=== PATIENT | female | born 1990 | race Caucasian/White ===

== ENCOUNTER 2017-09-11 22:08 | Emergency (ER) | payer BC ==
[~2017-09-11] VITALS: Ht 167.6 cm; Wt 59.0 kg
[~2017-09-11 22:08] MED LIST: ACETAMINOPHEN-1 EAC1 PO; ADVIL100 M1 PO; ALEVE220 M1 PO; ALPRAZOLAM0.5 MG; AMBIEN10 MG; AMBIEN10 MG PO; BIRTH CONTROL PILL PO; CRUTCH1 EACH; IBUPROFEN800 MG PO; NAPROXEN500 MG PO; NUVARING VAGIN1 EACH; NUVARING VAGIN1 EACH VG; POLYMYXIN B-TMP10 ML OD; PRENATAL ONE T1 EACH PO; PROZAC20 MG; SUDAFED 12-HOU120 MG PO; VISTARIL25 MG PO; ZOFRAN4 MG PO
[2017-09-11] MEDS ORDERED: BACTRIM DS TAB1 EACH PO (22:15)
== END 2017-09-12 00:22 | disposition home or self-care (01) ==
LOC: ED 22:08
DX: F10.129 Alcohol abuse with intoxication, unspecified (principal); Z91.038 Other insect allergy status; Z91.030 Bee allergy status; Z88.0 Allergy status to penicillin; Z79.899 Other long term (current) drug therapy
CPT/HCPCS: 80053; 81001; 84703; 85025; 96361; 96374; 96375; 99284; G0480; J2405; J2550; J7030

== ENCOUNTER 2023-09-13 15:30 | Emergency (ER) | payer OTHER ==
[~2023-09-13] VITALS: Ht 167.6 cm; Wt 65.6 kg
[~2023-09-13 15:30] MED LIST changes: +BACTRIM DS TAB1 EACH PO
[2023-09-13] MEDS ORDERED: ondansetron HCL 4 MG/2 ML VIAL IV ONE (16:00)
[2023-09-13] MEDS ORDERED: SODIUM CHLORIDE 0.9% 1,000 ML IV PRN (16:00)
[2023-09-13] MEDS ORDERED: PYRIDOXINE HCL 100 MG/ML VIAL IV ONE (16:15)
[2023-09-13] MEDS ORDERED: diphenhydrAMINE HCL 50 MG/ML VIAL IV ONE (16:15)
[2023-09-13] MEDS ORDERED: VITAFOL-OB+DHA1 EACH PO (16:28)
[2023-09-13] MEDS ORDERED: DEXTROSE 5% IM ONE (16:30)
[2023-09-13] MEDS ORDERED: PYRIDOXINE HCL IM ONE (16:30)
[2023-09-13 16:36] LABS: BASOPHILS 0.6 % (0-2); EOSINOPHILS 1.1 % (0-6); HEMOGLOBIN 12.3 g/dL (12.0-18.0); LYMPHOCYTES 17.9 % (24-44); MCH 28.9 (27-36); MCV 84.9 fl (81-99); MONOCYTES 5.4 % (0-12); PLATELET COUNT 232 K/uL (140-440); RBC 4.25 M/ul (4.3-5.7); RDW 12.7 (10.5-15.0)
[2023-09-13] MEDS ORDERED: PYRIDOXINE HCL IV ONE (16:45)
[2023-09-13] MEDS ORDERED: DEXTROSE 5% IV ONE (16:45)
[2023-09-13 16:59] LABS: ALBUMIN 3.5 g/dL (3.4-5.0); ALBUMIN/GLOBULIN RATIO 0.95 (1.1-2.4); ANION GAP 14.4 (7-21); BILIRUBIN, TOTAL 0.2 ng/dL (0.2-1.0); BUN/CREATININE RATIO 16.07 (6.0-28.6); CALCIUM 9.1 mg/dL (8.5-10.1); CREATININE, SERUM 0.56 mg/dL (0.55-1.02); MAGNESIUM 1.8 mg/dL (1.8-2.4); POTASSIUM 3.4 mmol/L (3.5-5.1); PROTEIN, TOTAL 7.2 g/dL (6.4-8.2)
[2023-09-13 17:39] LABS: BILIRUBIN, URINE NEGATIVE (negative); BLOOD/HGB, URINE NEGATIVE (Negative); KETONE, URINE NEGATIVE (Negative); LEUK ESTERASE, URINE NEGATIVE (negative); NITRITE, URINE NEGATIVE (negative)
[2023-09-13] MEDS ORDERED: ONDANSETRON ODT8 MG PO (18:47)
[2023-09-13] MEDS ORDERED: VITAMIN B-610 MG PO (18:47)
[2023-09-13 18:55] VITALS: BP 99/58
== END 2023-09-13 18:55 | disposition home or self-care (01) ==
LOC: ED 15:30
PROVIDERS: Emergency Medicine
DX: O21.9 Vomiting of pregnancy, unspecified (principal); Z3A.12 12 weeks gestation of pregnancy; O26.891 Other specified pregnancy related conditions, first trimester; R42 Dizziness and giddiness; R51.9 Headache, unspecified; O99.511 Diseases of the respiratory system complicating pregnancy, first trimester; J45.909 Unspecified asthma, uncomplicated; Z79.899 Other long term (current) drug therapy; Z88.0 Allergy status to penicillin; Z91.030 Bee allergy status
CPT/HCPCS: 36415; 80053; 81003; 83690; 83735; 85025; J1200; J2405; J3415; J7030

== ENCOUNTER 2024-01-28 07:57 | Emergency (ER) | payer OTHER ==
[~2024-01-28] VITALS: Ht 167.6 cm; Wt 82.5 kg
[~2024-01-28 07:57] MED LIST changes: +ONDANSETRON ODT8 MG PO; +VITAFOL-OB+DHA1 EACH PO; +VITAMIN B-610 MG PO
[2024-01-28 08:33] LABS: BASOPHILS 0.4 % (0-2); EOSINOPHILS 1.9 % (0-6); HEMATOCRIT 35.1 % (35.0-50.0); HEMOGLOBIN 12.1 g/dL (12.0-18.0); LYMPHOCYTES 10.6 % (24-44); MCH 30.2 (27-36); MCHC 34.5 g/dl (30-36); MCV 87.6 fl (81-99); MONOCYTES 8.7 % (0-12); NEUTROPHILS 78.4 % (39-80); PLATELET COUNT 188 K/uL (140-440); RBC 4.01 M/ul (4.3-5.7); RDW 13.7 (10.5-15.0)
[2024-01-28 08:47] LABS: ALBUMIN 2.9 g/dL (3.4-5.0); ALBUMIN/GLOBULIN RATIO 0.66 (1.1-2.4); ANION GAP 14.1 (7-21); BILIRUBIN, TOTAL 0.3 ng/dL (0.2-1.0); BUN/CREATININE RATIO 11.76 (6.0-28.6); CALCIUM 8.8 mg/dL (8.5-10.1); CREATININE, SERUM 0.68 mg/dL (0.55-1.02); POTASSIUM 4.1 mmol/L (3.5-5.1); PROTEIN, TOTAL 7.3 g/dL (6.4-8.2)
[2024-01-28] MEDS ORDERED: SODIUM CHLORIDE 0.9% 1,000 ML IV PRN (09:00)
[2024-01-28 09:07] LABS: BILIRUBIN, URINE NEGATIVE (negative); BLOOD/HGB, URINE NEGATIVE (Negative); KETONE, URINE NEGATIVE (Negative); LEUK ESTERASE, URINE NEGATIVE (negative); NITRITE, URINE NEGATIVE (negative)
[2024-01-28 09:08] LABS: BILIRUBIN, URINE NEGATIVE (negative); BLOOD/HGB, URINE NEGATIVE (Negative); KETONE, URINE NEGATIVE (Negative); LEUK ESTERASE, URINE NEGATIVE (negative); NITRITE, URINE NEGATIVE (negative)
[2024-01-28 09:17] LABS: BACTERIA, URINE RARE /hpf (negative); CASTS, URINE NONE SEEN \\lpf; COLLECTION TYPE, URINE CLEAN CATCH; CRYSTALS, URINE NONE SEEN (0-1+); REFLEX CULTURE, URINE No (No)
[2024-01-28 11:52] VITALS: BP 114/76
== END 2024-01-28 11:51 | disposition home or self-care (01) ==
LOC: ED 07:57
PROVIDERS: Emergency Medicine
DX: O26.893 Other specified pregnancy related conditions, third trimester (principal); R10.9 Unspecified abdominal pain; O99.513 Diseases of the respiratory system complicating pregnancy, third trimester; J45.909 Unspecified asthma, uncomplicated; Z3A.32 32 weeks gestation of pregnancy; Z88.0 Allergy status to penicillin; Z91.030 Bee allergy status; Z79.899 Other long term (current) drug therapy
CPT/HCPCS: 36415; 59025; 76770; 80053; 81001; 81003; 85025; 99284-25; G0463; J7030

== ENCOUNTER 2024-01-28 19:19 | Emergency (ER) | payer OTHER ==
[~2024-01-28] VITALS: Ht 167.6 cm; Wt 80.0 kg
--- OUTSIDE RECORDS SUMMARY | 2024-01-28 19:26 | XMS ---
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 [place] - 2 Visits in 30 Days CARE PROVIDERS ELVIN MILES Nurse Practitioner: Family Current PHONE: Unknown Gema has no Care Guidelines for this patient. E.Mary VISIT COUNT (12 MO.) 3 [facility] TOTAL 3 NOTE: Visits indicate total known visits. ED/UCC VISIT TRACKING (12 MO.) 01/28/2024 19:19 [facility] [place] TYPE: Emergency COMPLAINT: - VAGINAL BLEEDING/32 WEEKS 01/28/2024 07:58 [facility] [place] TYPE: Emergency COMPLAINT: - FLANK PAIN 09/13/2023 15:31 [facility] [place] TYPE: Emergency COMPLAINT: - DIZZINESS/ 12 WEEKS PREG DIAGNOSES: - 12 weeks gestation of - Allergy status to penicillin - Bee allergy status - Diseases of the respiratory system complicating , first trimester - Dizziness and giddiness - Headache, unspecified - Nausea with vomiting, unspecified - Other fpc (current) drug therapy - Other specified related conditions, first trimester - Unspecified asthma, uncomplicated - Vomiting of , unspecified INPATIENT VISIT TRACKING (12 MO.) No inpatient visits to display in this time frame [email or web address]
[2024-01-28 20:15] VITALS: BP 119/70
== END 2024-01-28 20:15 | disposition other institution, planned readmission (95) ==
LOC: ED 19:19
DX: O46.93 Antepartum hemorrhage, unspecified, third trimester (principal); Z3A.32 32 weeks gestation of pregnancy; Z88.0 Allergy status to penicillin; Z91.030 Bee allergy status
CPT/HCPCS: 99284

== ENCOUNTER 2024-03-16 06:28 | Inpatient (IN) | payer OTHER ==
[~2024-03-16] VITALS: Ht 167.6 cm; Wt 86.2 kg
[2024-03-17] MEDS ORDERED: LACTATED RINGER'S 2,000 ML IV PRN
[2024-03-17] MEDS ORDERED: MAGNESIUM HYDROXIDE/AL HYDROX 30 ML CUP PO PRN (05:30)
[2024-03-17] MEDS ORDERED: CALCIUM CARBONATE 500 MG CHEW PO PRN (05:30)
[2024-03-17 05:43] LABS: HEMATOCRIT 38.1 % (35.0-50.0); MCH 29.4 (27-36); MCHC 34.1 g/dl (30-36); MCV 86.1 fl (81-99); RBC 4.42 M/ul (4.3-5.7); RDW 14.2 (10.5-15.0)
[2024-03-17 06:05] LABS: AMPHETAMINES, URINE NEGATIVE (NEGATIVE); BARBITURATES, URINE NEGATIVE (NEGATIVE); BENZODIAZEPINE, URINE NEGATIVE (NEGATIVE); BUPRENORPHINE, URINE NEGATIVE (NEGATIVE); CANNABINOID, URINE NEGATIVE (NEGATIVE); COCAINE, URINE NEGATIVE (NEGATIVE); ECSTASY, URINE NEGATIVE (NEGATIVE); FENTANYL, URINE NEGATIVE (NEGATIVE); METHADONE, URINE NEGATIVE (NEGATIVE); OPIATES, URINE NEGATIVE (NEGATIVE); OXYCODONE, URINE NEGATIVE (NEGATIVE); PHENCYCLIDINE, URINE NEGATIVE (NEGATIVE)
[2024-03-17 06:18] LABS: ABO A; ANTIBODY SCREEN NEGATIVE; RH POSITIVE
[2024-03-17 06:21] VITALS: BP 113/68
[2024-03-17] MEDS ORDERED: SOD+POT BICARB/CITRIC ACID 2 EA TABLET.EFF PO SCH (07:00)
[2024-03-17] MEDS ORDERED: CEFAZOLIN SODIUM 2 GM/20 ML SYR IV SCH (07:00)
[2024-03-17] MEDS ORDERED: fentaNYL citrate 100 MCG/2 ML VIAL ONE (07:21)
[2024-03-17] MEDS ORDERED: LIDOCAINE HCL 2% 5 ML SDV ONE (07:21)
[2024-03-17] MEDS ORDERED: BUPIVACAINE 0.75% IN DEXTROSE 2 ML AMP ONE (07:21)
[2024-03-17] MEDS ORDERED: ondansetron HCL 4 MG/2 ML VIAL ONE (07:21)
[2024-03-17] MEDS ORDERED: MORPHINE SULFATE 1 MG/ML VIAL ONE (07:21)
[2024-03-17] MEDS ORDERED: DEXAMETHASONE SOD PHOS 4 MG/ML VIAL ONE ×2 (07:22→08:10)
[2024-03-17] MEDS ORDERED: OXYTOCIN 10 UNITS/ML VIAL ONE (07:25)
[2024-03-17] MEDS ORDERED: PHENYLEPHRINE HCL 10 MG/ML VIAL ONE (07:34)
[2024-03-17] MEDS ORDERED: Ropivacaine HCl 0.5% 30 ML VIAL ONE (08:10)
[2024-03-17] MEDS ORDERED: SODIUM CHLORIDE 0.9% 20 ML IV ONE (08:10)
[2024-03-17] MEDS ORDERED: dexmedeTOMIDine HCl 200 MCG/2 ML VIAL ONE (08:13)
[2024-03-17] MEDS ORDERED: diphenhydrAMINE HCL 50 MG/ML VIAL IV PRN (08:15)
[2024-03-17] MEDS ORDERED: ondansetron HCL 4 MG/2 ML VIAL IV PRN ×3 (08:15→09:00)
[2024-03-17] MEDS ORDERED: diphenhydrAMINE HCL 25 MG CAP PO PRN (08:15)
[2024-03-17] MEDS ORDERED: NALOXONE HCL 0.4 MG SYR IV PRN ×2 (08:15)
[2024-03-17] MEDS ORDERED: fentaNYL citrate 50 MCG/ML SDV IV PRN (08:15)
[2024-03-17] MEDS ORDERED: HYDROmorphone HCL 1 MG/ML SYR IV PRN (08:15)
[2024-03-17] MEDS ORDERED: KETOROLAC TROMETHAMINE 30 MG/ML VIAL IV PRN ×2 (08:15)
[2024-03-17] MEDS ORDERED: IBLOOD GLUCOSE TEST STRIP 1 EA TEST VI PRN (08:15)
[2024-03-17] MEDS ORDERED: LACTATED RINGER'S 1,000 ML IV SCH ×2 (08:52)
[2024-03-17] MEDS ORDERED: PROMETHAZINE HCL 25 MG SUPP PR PRN (09:00)
[2024-03-17] MEDS ORDERED: OXYTOCIN/0.9 % SODIUM CHLORIDE 500 ML IV SCH (09:00)
[2024-03-17] MEDS ORDERED: PROCHLORPERAZINE EDISYLATE 10 MG/2 ML VIAL IV PRN (09:00)
[2024-03-17] MEDS ORDERED: METOCLOPRAMIDE HCL 10 MG/2 ML SDV IV PRN (09:00)
[2024-03-17] MEDS ORDERED: bisacodyL 10 MG SUPP PR PRN (09:00)
[2024-03-17] MEDS ORDERED: SENNOSIDES/DOCUSATE 1 EA TAB PO SCH (09:00)
[2024-03-17] MEDS ORDERED: LIDOCAINE 2% VISCOUS 6 ML SYR TOP ONE (09:00)
[2024-03-17] MEDS ORDERED: PROMETHAZINE HCL 25 MG TAB PO PRN (09:00)
[2024-03-17] MEDS ORDERED: HYDROCODONE/ACETA 5/325 TAB PO PRN (09:00)
[2024-03-17 09:32] VITALS: BP 105/57
--- NOTE | 2024-03-17 09:41 | NUR ---
03/17/24 0941 Caroline Hernandez 0853-PT ARRIVES TO ROOM 103 IN FB VIA STRETCHER, PT A+O X4, PT DENIES PAIN OR NAUSEA, VSS ON RA, RR EVEN AND UNLABORED. 20G IV TO LAC. 0900-HOB RAISED SLIGHTLY, PT DENIES PAIN OR NAUSEA, PT EATING ICE CHIPS, VSS ON RA. 904-PT BEING ASSISTED BY [facility] RN W/ , PT CONTINUES TO DENY PAIN OR NAUSEA, VS REMAIN STABLE ON RA. 909-BEDSIDE REPORT GIVEN TO [facility] RN, ALL QUESTIONS ANSWERED, FINAL FUNDAL CHECK COMPLETED W/ [facility] RN ASSUMING CARE.
[2024-03-17] MEDS ORDERED: ePHEDrine KIT FOR FBC IV ONE ×2 (09:46→10:28)
[2024-03-17] MEDS ORDERED: ePHEDrine sulfate 5 MG/ML SYRINGE IV ONE (10:45)
[2024-03-17] MEDS ORDERED: ePHEDrine sulfate 50 MG/ML AMP ONE (10:47)
[2024-03-17] MEDS ORDERED: DEXAMETHASONE SOD PHOS 10 MG/ML VIAL IV ONE (11:00)
[2024-03-17] MEDS ORDERED: PROCHLORPERAZINE EDISYLATE 10 MG/2 ML VIAL IV ONE ×2 (11:00)
[2024-03-17] MEDS ORDERED: ACETAMINOPHEN 325 MG TAB PO PRN (12:45)
[2024-03-17] MEDS ORDERED: SIMETHICONE 80 MG CHEW PO SCH (13:00)
[2024-03-17 13:21] LABS: BASOPHILS 0.3 % (0-2); EOSINOPHILS 0.1 % (0-6); HEMATOCRIT 36.2 % (35.0-50.0); HEMOGLOBIN 12.7 g/dL (12.0-18.0); LYMPHOCYTES 3.8 % (24-44); MCH 30.1 (27-36); MCV 85.8 fl (81-99); MONOCYTES 1.3 % (0-12); NEUTROPHILS 94.5 % (39-80); PLATELET COUNT 188 K/uL (140-440); RBC 4.22 M/ul (4.3-5.7); RDW 13.7 (10.5-15.0)
[2024-03-17] MEDS ORDERED: KETOROLAC TROMETHAMINE 30 MG/ML VIAL IV SCH (14:00)
[2024-03-18 05:43] LABS: HEMATOCRIT 29.8 % (35.0-50.0); HEMOGLOBIN 10.1 g/dL (12.0-18.0); MCH 29.8 (27-36); MCV 87.6 fl (81-99); RBC 3.4 M/ul (4.3-5.7)
[2024-03-18] MEDS ORDERED: SOD+POT BICARB/CITRIC ACID 2 EA TABLET.EFF PO SCH (07:00)
[2024-03-18] MEDS ORDERED: CEFAZOLIN SODIUM 2 GM/20 ML SYR IV SCH (07:00)
[2024-03-18] MEDS ORDERED: IBUPROFEN 600 MG TAB PO SCH (14:00)
--- NOTE | 2024-03-20 11:44 | PATH ---
[facility] [address], [place] [address] Signed SPECIMEN(S): A RIGHT FALLOPIAN TUBE SPECIMEN(S): B LEFT FALLOPIAN TUBE SPECIMEN SOURCE: A. RIGHT FALLOPIAN TUBE B. LEFT FALLOPIAN TUBE CLINICAL HISTORY: Risk-reducing FINAL PATHOLOGIC DIAGNOSIS: A-B. 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 These findings, together with the gross examination, support the pathologic diagnosis. GROSS DESCRIPTION: A. The specimen, labeled and designated "Jax Akers., right fallopian tube per requisition," is received in formalin and consists of a 13.9 x 1 x 0.8 cm pink-purple fallopian tube with attached fimbriated end. The serosal surfaces smooth no apparent paratubal cyst. The specimen is serially sectioned revealing a pinpoint lumen. There are no discrete masses or lesions. [employer] sections are submitted cassette A1 and A2 fimbriated ends completely submitted in cassette A1. B. The specimen, labeled and designated "Jax Akers., left fallopian tube per requisition," is received in formalin and consists of a 10.4 x 1 x 1 cm pink-purple fallopian tube with attached fimbriated end. The serosal surface is smooth no apparent paratubal cyst. Specimen serially section revealing pinpoint lumen. There are no discrete masses or lesions. Represent sections are submitted cassette B1 and B2 with fimbriated ends completely submitted cassette B1. AA (under the direct supervision of a pathologist) The Gross Description was prepared using a voice recognition system. The report was reviewed for accuracy; however, sound-alike word errors, addition and/or PATIENT NAME: CHRIS AKERS PATHOLOGY DATE OF : 86 REPORT #: [id number] PHYSICIAN: POLLY ZEPEDA PCP: CHANDRIKA BENITEZ REPORT IS CONFIDENTIAL AND NOT TO BE RELEASED WITHOUT AUTHORIZATION [facility] [address] [place] [address] [facility] [place] [address] Signed deletions may occur. If there is any question about this report, please contact Client Services. ADDITIONAL NOTES: Immunohistochemical and/or in situ hybridization studies if performed in this case included appropriate positive controls that reacted as expected. This test was developed and its performance characteristics determined by [facility] [employer] It has not been cleared or approved by the U.S. Food and Drug Administration. The FDA has determined that such clearance or approval is not necessary. This test is used for clinical purposes. It should not be regarded as investigational or for research. [facility] is certified under the Clinical Laboratory Improvement Amendments of 1988 (CLIA) as qualified to perform high complexity clinical laboratory testing. PERFORMING LABORATORY: Technical component was performed by [facility] [address] [place] [id number] (CLIA# [id number]). Professional interpretation was performed by [facility], [address] [place] [address] (CLIA#: [id number]). Diagnostician: Zach Roberts MD Pathologist Electronically Signed 03/20/2024 Copies: ~ PATIENT NAME: CHRIS AKERS SHANA PATHOLOGY DATE OF : 86 REPORT #: [id number] PHYSICIAN: POLLY PATHOLOGY PCP: CHANDRIKA BENITEZ REPORT IS CONFIDENTIAL AND NOT TO BE RELEASED WITHOUT AUTHORIZATION
== END 2024-03-19 12:30 | disposition home or self-care (01) | DRG 785 ==
LOC: FBC 03-17 05:01
PROVIDERS: ADMIT Obstetrics & Gynecology; ATTEND Obstetrics & Gynecology
PROC: 10D00Z1 Extraction of Products of Conception, Low, Open Approach (ICD-10-PCS; principal; 2024-03-17 07:30)
PROC: 0UB70ZZ Excision of Bilateral Fallopian Tubes, Open Approach (ICD-10-PCS; 2024-03-17 07:30)
DX: O34.211 Maternal care for low transverse scar from previous cesarean delivery (principal); Z3A.39 39 weeks gestation of pregnancy; Z37.0 Single live birth; Z30.2 Encounter for sterilization
CPT/HCPCS: 01961; 36415; 76942; 80307; 85025; 85027; 85060; 86850; 86900; 86901; A9270; J0690; J0780; J1100; J1885; J2003; J2274; J2371; J2405; J2590; J2765; J2795; J3010; J7121